=== PATIENT | female | born 1965 | race African-American/Black ===

== ENCOUNTER 2023-04-23 13:53 | Emergency (ER) | payer OTHER ==
[~2023-04-23] VITALS: Ht 167.6 cm; Wt 84.0 kg
[~2023-04-23 13:53] MED LIST: AMIT10TA7
[2023-04-23 14:14] VITALS: O2SAT 98
[2023-04-23] MEDS: IBUPROFEN 600MG TABLET PO ONE (15:02)
[2023-04-23] MEDS ORDERED: NAPR-1176 MT (15:17)
[2023-04-23 15:40] VITALS: BP 131/84; PULSE 87; RESP 18; TEMP 97
== END 2023-04-23 15:41 | disposition home or self-care (01) ==
LOC: ER 14:43
DX: S29.012A Strain of muscle and tendon of back wall of thorax, initial encounter (principal); S16.1XXA Strain of muscle, fascia and tendon at neck level, initial encounter; V89.2XXA Person injured in unspecified motor-vehicle accident, traffic, initial encounter; Y93.89 Activity, other specified; Y92.89 Other specified places as the place of occurrence of the external cause; Y99.8 Other external cause status
CPT/HCPCS: 71046; 72040; 99284